=== PATIENT | female | born 1990 | race Caucasian/White ===

== ENCOUNTER 2016-07-05 12:05 | Emergency (ER) | payer MEDICAID, OTHER ==
[2016-07-05 14:09] LABS: ABSOLUTE NEUTROPHIL COUNT 7.2 K/mm3 (1.8-7.7); BASO % 0.3 % (0.2-1.0); EOS # 0.2 (0.0-0.5); EOS % 1.5 % (0.9-2.9); HEMATOCRIT 42.1 % (37.0-47.0); HEMOGLOBIN 14.4 gm/l (12.0-16.0); IMM NEUT% 0.2 % (0-1); LYMPH # 1.9 (1.0-4.8); LYMPH % 19.1 % (15-45); MEAN CELL VOLUME 92.5 fl (81.0-99.0); MEAN CORPUSCULAR HEMOGLOBIN 31.6 pg (27.0-31.0); MEAN CORPUSCULAR HGB CONC 34.2 g/dl (33.0-37.0); MEAN PLATELET VOLUME 9.8 fl (7.4-10.4); MONO # 0.8 (0.0-0.8); MONO % 7.4 % (4-12); NEUT % 71.5 % (43-75); PLATELET COUNT 240 K/mm3 (130-400); RED CELL DISTRIBUTION WIDTH 12.1 % (11.5-14.5)
--- NOTE | 2016-07-05 14:45 | US ---
OB COMP <14 WKS, OB TRANSVAGINAL CLINICAL HISTORY: 25 years old. Unknown last menstrual period, but with spotting. COMPARISON: 04/01/2016 OB ultrasound TECHNIQUE: Transabdominal and transvaginal. FINDINGS: Uterus: Gestational sac. Gestational sac size and shape: Normal size and shape. Mean sac diameter: 1.2 cm = 5 weeks 2 days. Estimated date of confinement: 03/05/2017 Embryo: No Yolks sac: No Placenta: Too early to comment. Previa: Too early comment. Licha-gestational bleed: None. Right ovary: 3.1 x 2.3 x 3.5 cm. Normal blood flow. Left ovary: 3.0 x 2.2 x 2.7 cm. Normal blood flow. Impression: of unknown location. An intrauterine sac-like structure with no yolk sac or embryo and normal adnexa. Most likely an intrauterine , however, ectopic cannot be completely excluded. Report was sent to the emergency department electronic medical record system 07/05/2016 at 14:46
[2016-07-07 09:02] LABS: CHLAMYDIA BD Negative (Negative); N.GONORRHOEAE BD Negative (Negative); SOURCE Urine (())
== END 2016-07-05 15:40 | disposition home or self-care (01) ==
LOC: ED 12:05
DX: O20.0 Threatened abortion (principal); Z3A.01 Less than 8 weeks gestation of pregnancy

== ENCOUNTER 2016-08-01 16:15 | Emergency (ER) | payer OTHER ==
[2016-08-01] MEDS ORDERED: ACETAMINOPHEN 500 MG TABLET ONE (17:11)
--- NOTE | 2016-08-01 18:31 | US ---
Exam: Complete obstetric ultrasound less than 14 weeks COMPARISON: 07/05/2016 INDICATION: , cramping. Findings: Transabdominal and transvaginal obstetric ultrasound less than 14 weeks was obtained. Real-time sonographic imaging demonstrated evidence of intrauterine which has a mean sac diameter of 2.0 cm which correlates with a gestational age of 6 weeks 0 days. Yolk sac is identified, although it is prominent at 9 mm and no pole is identified. There is no perigestational hemorrhage. Right ovary measures 4.4 x 2.2 x 4.6 cm and left ovary measures 2.0 x 1.7 x 2.6 cm. There is no cystic or solid ovarian mass. There is no separate adnexal mass. Blood flow is present within both ovaries. There is no significant free fluid in cul-de-sac. IMPRESSION: There is evidence of an intrauterine , however the yolk sac is large (over 7 mm) and a pole is not identified and therefore viability of this is uncertain. Consider follow-up ultrasound in one week.
== END 2016-08-01 19:15 | disposition home or self-care (01) ==
LOC: ED 16:15
DX: O03.9 Complete or unspecified spontaneous abortion without complication (principal); Z3A.01 Less than 8 weeks gestation of pregnancy
CPT/HCPCS: 84702; 76817; 76801; 99283 ×2; A9270